=== PATIENT | male | born 2000 | race African-American/Black ===

== ENCOUNTER 2021-02-23 11:49 | Inpatient (IN) | payer OTHER ==
[~2021-02-23] VITALS: Ht 185.4 cm; Wt 81.8 kg
[2021-02-23 13:07] LABS: HEMATOCRIT 47.2 % (42.0-52.0); HEMOGLOBIN 15.2 g/dl (13.5-17.5); MEAN CORPUSCULAR HEMOGLOBIN 27.8 pg (27.0-33.0); MEAN CORPUSCULAR HGB CONC 32.2 g/dl (32.0-36.5); MEAN CORPUSCULAR VOLUME 86.4 fl (80.0-96.0); PLATELET COUNT, AUTOMATED 199 10^3/uL (150-450); RED BLOOD COUNT 5.46 10^6/uL (4.30-6.10); WHITE BLOOD COUNT 7.5 10^3/uL (4.0-10.0)
[2021-02-23 13:46] LABS: ACETAMINOPHEN LEVEL < 2.0 UG/ML (10.0-30.0); ALT/SGPT 45 U/L (12-78); BILIRUBIN,DIRECT 0.4 MG/DL (0.0-0.2); BILIRUBIN,TOTAL 2.1 MG/DL (0.2-1.0); BLOOD UREA NITROGEN 12 MG/DL (7-18); CALCIUM LEVEL 9.5 MG/DL (8.5-10.1); CARBON DIOXIDE LEVEL 27 MEQ/L (21-32); CHLORIDE LEVEL 106 MEQ/L (98-107); CREATININE FOR GFR 1.11 MG/DL (0.70-1.30); ETHYL ALCOHOL (ETHANOL) < 0.003 % (0.000-0.010); GLUCOSE, FASTING 91 MG/DL (70-100); POTASSIUM SERUM 4.3 MEQ/L (3.5-5.1); SALICYLATE LEVEL < 1.7 MG/DL (5.0-30.0); SODIUM LEVEL 138 MEQ/L (136-145); TOTAL PROTEIN 7.9 GM/DL (6.4-8.2)
[2021-02-23 14:06] LABS: AMPHETAMINES LEVEL URINE NEGATIVE (NEGATIVE); BARBITURATES URINE NEGATIVE (NEGATIVE); BENZODIAZEPINES URINE NEGATIVE (NEGATIVE); CANNABINOIDS URINE POSITIVE (NEGATIVE); COCAINE METABOLITE URINE NEGATIVE (NEGATIVE); METHADONE URINE NEGATIVE (NEGATIVE); OPIATES URINE NEGATIVE (NEGATIVE); PHENCYCLIDINE URINE NEGATIVE (NEGATIVE)
[2021-02-23 15:53] LABS: RSV AMPLIFICATION NEGATIVE (NEGATIVE)
[2021-02-23] MEDS ORDERED: MAALOX 30 ML SUSP *UDC PO PRN (22:40)
[2021-02-23] MEDS ORDERED: traZODone 50 MG TAB PO PRN (22:40)
[2021-02-23] MEDS ORDERED: MOM 30ML SUSPENSION UDC PO PRN (22:40)
[2021-02-23] MEDS ORDERED: ACETAMINOPHEN TAB 650MG DOSE (2X325MG) PO PRN (22:40)
[2021-02-23] MEDS ORDERED: HOME MED LIST COMPLETE! XX SCH (23:25)
[2021-02-24 05:21] VITALS: BP 133/83
[2021-02-24] MEDS ORDERED: hydrOXYzine 25 MG TAB PO PRN (11:25)
[2021-02-24 18:03] VITALS: BP 141/75
[2021-02-24] MEDS: SERTRALINE HCL 25 MG TABLET PO SCH (21:32)
[2021-02-25 06:24] VITALS: BP 137/71
[2021-02-25 16:50] VITALS: BP 149/89
[2021-02-25] MEDS: SERTRALINE HCL 25 MG TABLET PO SCH (21:07)
[2021-02-26 06:12] VITALS: BP 122/50
[2021-02-26] MEDS ORDERED: HYDR-3363 PO (08:08)
[2021-02-26] MEDS ORDERED: SERT50TA29 PO (08:08)
[2021-02-26 18:00] VITALS: BP 148/80
[2021-02-26] MEDS ORDERED: SERTRALINE HCL 50 MG TAB PO SCH (21:00)
[2021-02-27 06:24] VITALS: BP 142/96
== END 2021-02-27 13:04 | disposition home or self-care (01) | DRG 881 ==
LOC: M ED 11:49 → M ED INP 22:39 → M PSY 02-24 04:55
PROVIDERS: ADMIT Psychiatry & Neurology Psychiatry; ATTEND Psychiatry & Neurology Psychiatry
DX: F32.9 Major depressive disorder, single episode, unspecified (principal); R45.851 Suicidal ideations